=== PATIENT | female | born 1945 | race Caucasian/White ===

== ENCOUNTER → 2016-04-23 | Outpatient (CLI) | payer BC ==
[~2016-04-23] MED LIST: ASCA500 PO; ASPI81TA28 PO; AZEL0.055 OP; AZEL30SP NAE; GLUC1CAP35 PO; MULT-506 PO; OXYC-57 PO; WARF2TAB PO
== END | disposition home or self-care (01) ==
LOC: C.RDSM 13:30
PROVIDERS: ATTEND Physical Medicine & Rehabilitation Sports Medicine
DX: M25.561 Pain in right knee (principal)

== ENCOUNTER → 2016-09-11 | Outpatient (CLI) | payer BC ==
--- NOTE | 2016-09-11 16:16 | MAMMOGRAPHY REPORT ---
BILATERAL DIGITAL SCREENING MAMMOGRAM WITH CAD: 09/11/2016 CLINICAL HISTORY: Routine screening. TECHNIQUE: Bilateral CC, MLO and repeat left MLO views were obtained. Current study was also evaluat ed with a Computer Aided Detection (CAD) system. COMPARISON: Comparison is made to exams dated: 09/08/2015 mammogram, 09/02/2014 mammogram, 08/27/2013 ma mmogram, 08/26/2012 mammogram, 08/21/2011 mammogram, and 08/17/2010 mammogram - [facility] nter. BREAST COMPOSITION: There are scattered areas of fibroglandular density in both breasts. FINDINGS: There are stable scattered and grouped benign-appearing round microcalcifications. No susp icious mass, architectural distortion or cluster of suspicious microcalcifications is seen. IMPRESSION: ACR BI-RADS CATEGORY 1: NEGATIVE There is no mammographic evidence of malignancy. A 1 year screening mammogram is recommended. The pa tient will receive written notification of the results. Approximately 10% of breast cancers are not detected with mammography. A negative mammographic report should not delay biopsy if a clinically suggestive mass is present. Suad Strong M.D. ay/:09/11/2016 14:14:44 Book Cutter: Doe FAIRCHILD(Willam)(Chirag), [facility] letter sent: Normal 1/2 BI-RADS Code: ACR BI-RADS Category 1: Negative
== END | disposition home or self-care (01) ==
LOC: C.MAMM 09:03
PROVIDERS: ATTEND Family Medicine
DX: Z12.31 Encounter for screening mammogram for malignant neoplasm of breast (principal)

== ENCOUNTER → 2016-12-07 | Outpatient (CLI) | payer BC, OTHER ==
--- NOTE | 2016-12-07 11:12 | DIAGNOSTIC IMAGING REPORT ---
BILATERAL KNEE RADIOGRAPHS CLINICAL HISTORY: Bilateral knee pain. COMPARISON: Knee radiographs April 23, 2016. FINDINGS: Right knee: There is moderate to marked lateral compartment joint space narrowing with osteophytosis. There is also joint space narrowing of the patellofemoral compartment. There is tricompartmental osteophytosis of the right knee. A small to moderate right knee joint effusion is present. There is no fracture. Left knee: Alignment of the left knee is anatomic. There is no fracture or suspicious lesion. There is a suspected small left knee joint effusion. There is mild lateral compartment joint space narrowing with moderate osteophytosis. There is mild patellofemoral compartment joint space narrowing. IMPRESSION: Right knee: 1. Tricompartmental osteoarthrosis of the right knee, most pronounced within the lateral compartment where there is severe joint space narrowing. 2. Small to moderate right knee joint effusion. Left knee: 1. Small left knee joint effusion. 2. Moderate lateral compartment osteoarthritis. Electronically signed by: Sly Miller M.D. 12/07/2016 11:10 AM Dictated Date/Time: 12/07/2016 11:08 AM
== END | disposition home or self-care (01) ==
LOC: C.RDSM 10:00
PROVIDERS: ATTEND Physician Assistant
DX: M17.0 Bilateral primary osteoarthritis of knee (principal)

== ENCOUNTER 2017-01-02 04:44 | Inpatient (IN) | payer BC, OTHER ==
[2016-12-07 11:43] VITALS: BMI 22.0
--- NOTE | 2016-12-07 12:15 | PAT Medication Instructions ---
Service Date Dec 07, 2016. Current Home Medication List Ascorbic Acid (Vitamin C), 1 TAB PO QAM Aspirin (Aspirin Ec), 81 MG PO Q2D Azelastine Hcl (Ophth) (Azelastine Hcl), 1 DROPS OP BID Ctbshjdatlj-Xidhogygsdq-Zjw C- (Glucosamine Chondroitin), 1 CAP PO QAM Multivitamin (Multivitamin), 1 TAB PO QAM Medication Instructions For Your Scheduled Surgery - Continue as directed: Aspirin (Aspirin Ec), 81 MG PO Q2D - Hold the following medications 2 weeks prior to surgery: Fgxmmywebxv-Wyyymquaacz-Yuc C- (Glucosamine Chondroitin), 1 CAP PO QAM - Hold the following medications the morning of surgery: Ascorbic Acid (Vitamin C), 1 TAB PO QAM Multivitamin (Multivitamin), 1 TAB PO QAM - Take the following medications the morning: Azelastine Hcl (Ophth) (Azelastine Hcl), Nasal [place] BID - Take the following medications as scheduled the night before surgery: Azelastine Hcl (Ophth) (Azelastine Hcl), Nasal [place] BID If you have any questions please call us at [phone] or [phone] or [phone]
[2016-12-07 12:54] LABS: BASO % 0.6 %; BASO ABS # 0.03 K/uL (0-0.2); COMPLETE YES; EOS % 0.4 %; HEMATOCRIT 41.5 % (37-47); IG% 0.2 %; LYMPH % 20.6 %; MEAN CELL VOLUME 90.6 fL (80-100); MEAN PLATELET VOLUME 9.4 fL (7.4-10.4); MONO % 15.1 %; NEUT % 63.1 %; PLATELET COUNT 295 K/uL (130-400); RED BLOOD COUNT 4.58 M/uL (4.2-5.4); WHITE BLOOD COUNT 4.85 K/uL (4.8-10.8)
--- NOTE | 2016-12-07 12:55 | DIAGNOSTIC IMAGING REPORT ---
CHEST 2 VIEWS ROUTINE CLINICAL HISTORY: 71 years-old Female presenting with preoperative chest x-ray. TECHNIQUE: PA and lateral views of the chest were obtained. COMPARISON: None. FINDINGS: Cardiomediastinal silhouette normal. Tortuosity of the descending thoracic aorta. Lungs and pleural spaces clear. Degenerative changes of the spine. Upper abdomen normal. IMPRESSION: 1. No acute cardiopulmonary disease. Electronically signed by: Jackson Cabral M.D. 12/07/2016 12:53 PM Dictated Date/Time: 12/07/2016 12:53 PM
[2016-12-07 13:06] LABS: INR 1.1 (0.9-1.1); PROTHROMBIN TIME (PATIENT) 11.5 SECONDS (9.0-12.0)
[2016-12-07 13:07] LABS: URINE APPEARANCE CLEAR (CLEAR); URINE BILIRUBIN NEG (NEG); URINE COLOR YELLOW; URINE EPITHELIAL CELL AUTO 0-5 /lpf (0-5); URINE NITRITE NEG (NEG); URINE SPECIFIC GRAVITY 1.018 (1.000-1.030); UROBILINOGEN NEG (NEG); ZZUR CULT IF INDIC CLEAN CATCH NO
[2016-12-07 13:17] LABS: MANUAL MICROSCOPIC REQUIRED? NO; REVIEW REQ? NO
[2016-12-07 13:23] LABS: CREATININE 0.67 mg/dl (0.60-1.20)
[2016-12-07 13:24] LABS: BUN/CREATININE RATIO 16.3 (10-20); CALCIUM 9.7 mg/dl (8.5-10.1); POTASSIUM 4.7 mmol/L (3.5-5.1)
--- NOTE | 2016-12-19 16:52 | HISTORY & PHYSICAL EXAMINATION ---
DATE OF ADMISSION: 01/02/2017 CHIEF COMPLAINT: Right knee pain. HISTORY OF PRESENT ILLNESS: This 71-year-old white female presents with complaints of right knee pain that she has had for several years. Pain has become worse with time. It is now affecting her ADLs. Pain is worse with weightbearing and ambulation. She denies any catching or locking. She does note crepitus in her knee. Occasional night pain. No effusions. No numbness or tingling. She has tried oral anti-inflammatories, oral pain medications, activity modification, viscosupplementation without lasting relief. Preoperative x-rays have been obtained. She elects to proceed with total knee arthroplasty in hopes of alleviating her pain. PAST MEDICAL HISTORY: Significant for osteoarthritis, history of hyperthyroidism, though it has returned to normal. Also, history of a monoclonal gammopathy of unknown significance (MGUS). PREVIOUS SURGERIES: Left hip arthroplasty 2000, right hip arthroplasty 2002, dental implants, and wisdom tooth extraction. SOCIAL HISTORY: The patient is retired. Single. No tobacco use, no ETOH use. FAMILY HISTORY: Significant for arthritis, hypertension, and stroke in her mother. ALLERGIES: KNOWN ALLERGY TO SHELLFISH AND SHRIMP. CURRENT MEDICATIONS: Aspirin 81 mg every other day, Astelin nasal spray 137 mcg 1 spray in each nostril b.i.d., Citracal p.o. daily, multivitamin daily, vitamin C daily. REVIEW OF SYSTEMS: Significant for above stated conditions, otherwise unremarkable. PHYSICAL EXAMINATION: GENERAL: Well-developed, well-nourished elderly white female in no acute distress. Sitting on a bed. Alert and oriented. SKIN: Warm and dry with good turgor. No rashes or lesions. No ecchymosis or erythema. No intraarticular effusion. HEAD, EYES, EARS, NOSE, AND THROAT: Normocephalic, atraumatic. Eyes PERRLA, EOMI. Nares patent bilaterally without turbinate enlargement. Oropharynx without erythema or exudate. No lesions noted. Uvula midline. Oral mucosa moist. Good dentition. Dental implant is noted. HEART: RRR. No MGR. LUNGS: Clear to auscultation bilaterally. No crackles, rhonchi or wheezing. Good air movement. ABDOMEN: Bowel sounds present x4, soft, nontender. No organomegaly. No masses. MUSCULOSKELETAL: Right knee has no intraarticular effusion. Significant valgus deformity. Stable collateral ligaments. No defect in the patellar tendon or quadriceps tendon. Marked crepitation with motion. She has full terminal extension. Flexion to greater than 110 degrees. Strength is 5/5 with fair quad tone. There is medial and lateral joint line discomfort with palpation. Mild peripatellar discomfort today. Ambulatory with an antalgic gait. NEUROLOGIC: Gross sensation is intact across the lower extremities via soft touch. Cranial nerves II-XII are intact. Peripheral pulses are 2+. DATA: Radiographic imaging obtained today was positive for significant degenerative change within the knee. She has valgus alignment. Periarticular osteophytes, subchondral sclerosis, and joint space narrowing are all present. Significant lateral compartment disease is noted. IMPRESSION: Right knee end-stage degenerative joint disease. PLAN: Informed written consent to proceed with right total knee arthroplasty will be obtained the day of surgery. Postoperative prescriptions for Percocet and Coumadin have been provided so that she may pick them him up ahead of time. Anticipate discharge to home with home health services. She will have someone stay with her for the first several days. She will also have friends check on her. Preoperative lab work, EKG, and chest x-ray have been ordered. Medical clearance has been requested from Dr. Anderson. She already has a walker and crutches.
[~2017-01-02] VITALS: Ht 160 cm; Wt 58.0 kg
[2017-01-02] VITALS (8 sets, daily range): BP systolic 121–142; BP diastolic 74–87; PULSE 58–71; TEMP 36.5–36.9; O2SAT 92–98; Ht 160 cm; Wt 58.0 kg
[~2017-01-02 04:44] MED LIST changes: -AZEL0.055 OP; -OXYC-57 PO; -WARF2TAB PO
[2017-01-02] MEDS ORDERED: TRANEXAMIC ACID INJ 1,000 MG in SODIUM CHLORIDE 0.9% 100ML 100 ML IV SCH ×2 (06:00→14:30)
[2017-01-02] MEDS ORDERED: LACTATED RINGER'S 1000ML 500 ML IV ONE (06:00)
[2017-01-02] MEDS ORDERED: LACTATED RINGER'S 1000ML 1,000 ML IV SCH (06:00)
[2017-01-02] MEDS ORDERED: ROPIVACAINE 5MG/ML 30 ML 150 MG, BUPIVACAINE/EPINEPHR 0.5% MPF 30 ML, KETOROLAC TROMETH... INFIL SCH ×7 (06:00)
[2017-01-02] MEDS ORDERED: CEFAZOLIN 2000 MG/60 ML D5W 60 ML IV SCH (06:00)
[2017-01-02] MEDS ORDERED: LACTATED RINGER'S 1000ML IV SCH (06:00)
--- NOTE | 2017-01-02 06:23 | History & Physical Bridge Note ---
H&P Re-Evaluation Bridge Note: I have examined the patient, reviewed the History & Physical and in the interval since the performance of the History & Physical I have noted the following changes of clinical significance: consent obtained.No changes noted
[2017-01-02] MEDS ORDERED: MIDAZOLAM HCL 1 MG/ML 2ML VIAL ONE (06:27)
[2017-01-02] MEDS ORDERED: FENTANYL CITRATE INJ 50 MCG/1 ML 2 ML VIAL ONE (06:28)
[2017-01-02] MEDS ORDERED: ROPIVACAINE 0.5% 5 MG/ML 30 ML VIAL ONE (06:31)
[2017-01-02] MEDS ORDERED: BUPIVACAINE 0.5 % 5 MG/1 ML PF 10ML VIAL ONE (06:31)
[2017-01-02] MEDS ORDERED: ORTHO JOINT ANESTHETIC ONE (06:31)
[2017-01-02] MEDS ORDERED: BACITRACIN 50000 UNIT VIAL ONE (06:56)
[2017-01-02] MEDS ORDERED: LIDOCAINE HCL 2% 2 ML VIAL (20MG/ML) ONE (07:21)
[2017-01-02] MEDS ORDERED: PROPOFOL IV EMULSION 10 MG/ML 20 ML VIAL IV ONE (07:21)
--- NOTE | 2017-01-02 08:26 | [facility] Post Operative Brief Note ---
Immediate Operative Summary Operative Date Jan 02, 2017. Pre-Operative Diagnosis Right Knee End-Stage Degenerative Joint Disease Post-Operative Diagnosis Right Knee End-Stage Degenerative Joint Disease Procedure(s) Performed Right Total Knee Arthroplasty Surgeon Dr. Gray Cisco Administrator Surgeon(s) Dr. Stack/NEEMA Penny Estimated Blood Loss 50cc Findings severe lateral disease Fluids (cc crystalloids) 1300cc Specimens A. Right Knee Bone and Tissue B. Reamings of Canal Right Knee (History of Monoclonal Gammopathy--written on specimen slip) Drains none Anesthesia spinal Complication(s) None Disposition Recovery Room / PACU
[2017-01-02] MEDS ORDERED: ONDANSETRON INJ 2 MG/ML 2 ML VIAL IV PRN ×2 (08:45→09:15)
[2017-01-02] MEDS ORDERED: ALUMINUM/MAGNESIUM/SIMETH (MAALOX MAX) 30 ML UDC PO PRN (08:45)
[2017-01-02] MEDS ORDERED: METOCLOPRAMIDE HCL INJ 5 MG/ML 2 ML VIAL IV PRN (08:45)
[2017-01-02] MEDS ORDERED: ACETAMINOPHEN 325 MG TAB PO PRN (08:45)
[2017-01-02] MEDS ORDERED: DiphenhydrAMINE HCL 50 MG/ML VIAL IV PRN (08:45)
[2017-01-02] MEDS ORDERED: MoRPHine SULFATE 2 MG/ML CARP IV PRN (08:45)
[2017-01-02] MEDS ORDERED: ACETAMINOPHEN IV 100 ML IV PRN (08:45)
[2017-01-02] MEDS ORDERED: BISACODYL 10 MG SUPP PR PRN (08:45)
[2017-01-02] MEDS ORDERED: MAGNESIUM HYDROXIDE SUSP 30 ML UDC PO PRN (08:45)
--- NOTE | 2017-01-02 08:52 | OPERATIVE REPORT ---
DATE OF OPERATION: 01/02/2017 PREOPERATIVE DIAGNOSIS: Osteoarthritis, right knee with valgus deformity. POSTOPERATIVE DIAGNOSIS: Same. OPERATION PERFORMED: Cemented right total knee replacement. SURGEON: Dr. Gray. SHEET METAL OPERATOR: Seda. SECOND SHEET METAL OPERATOR: Dimitri Case PA-C. PERIOPERATIVE SITUATION: Medically cleared female with intractable knee pain has valgus deformity, has failed conservative management for years and wants to proceed with surgical treatment. She has a hip replacement done on the left. SUMMARY OF IMPLANTS: Size 3 posterior cruciate substituting femur, size 3 rotating tibial platform tray, oval domed 3 pegged patella size 38, tibial insert size 3, posterior cruciate substituting 10 mm thick, 2 bags of Palacos G cement. ESTIMATED BLOOD LOSS: 50 mL. CRYSTALLOID: 1300 mL. PROCEDURE: The patient appropriately identified, site verified, consent verified, 2 grams of Ancef confirmed as being given. The right lower extremity was prepped and draped in usual routine fashion. Midline exposure was utilized. Parapatellar arthrotomy performed. Synovectomy completed, osteophytes resected. Distal femur entered. Cruciates resected. Distal femur resected 12 mm. Proximal tibia resected 4 mm. The extension gap was then checked. It was slightly tight, additional cut made and was perfect. Femur was sized to a 3. Care was taken to make sure it was not internally rotated secondary to valgus deformity. The transepicondylar axis looked good. The femur was then resected to a size 3 and the flexion gap was checked. It was good. The box cut was then made and a size 3 trial fit well. The tibia was then broached and reamed to a size 3 with excellent fit. The size 10 spacer fit well. Patella was sized to a 38, resection made leaving 15 mm, seating hole was made and the trial fit well and tracked well. All trial implants were then removed. The wound was copiously irrigated with Pulsavac with bacitracin as she was allergic to Betadine. The permanents were then cemented into position. After 12 minutes, the tourniquet deflated, after 16 minutes the knee flexed. Minor cement removal occurred. The wound was irrigated. The trial spacer removed, the wound irrigated and then the permanent spacer seated, knee reduced and closed with #1 Ethibond, #1 Vicryl, 2-0 Vicryl and stainless steel clips. Appropriate dressing applied. The patient transferred to the recovery room in satisfactory condition having tolerated the procedure well. I attest to the content of the Intraoperative Record and any orders documented therein. Any exception s are noted below.
[2017-01-02] MEDS: PANTOprazole SOD 40 MG TAB PO SCH (09:00)
[2017-01-02] MEDS: DOCUSATE SODIUM 100 MG CAP PO SCH ×2 (09:00→21:13)
[2017-01-02] MEDS: MULTIVITAMIN TAB PO SCH (09:00)
--- NOTE | 2017-01-02 09:05 | Anesthesiology Progress Note ---
Anesthesia Post Op Note Date & Time Jan 02, 2017 at 09:05 Vital Signs Pain Intensity: 0 Vital Signs Past 12 Hours Date Time Temp Pulse Resp B/P (MAP) Pulse Ox O2 Delivery O2 Flow Rate FiO2 01/02/17 09:01 123/78 01/02/17 08:58 65 18 100 01/02/17 08:58 64 18 01/02/17 08:56 126/78 01/02/17 08:53 55 14 01/02/17 08:53 55 14 100 01/02/17 08:51 119/72 01/02/17 08:48 54 12 01/02/17 08:48 56 12 100 01/02/17 08:47 59 16 01/02/17 08:47 58 16 100 01/02/17 08:46 116/71 01/02/17 08:42 63 14 100 01/02/17 08:42 59 14 01/02/17 08:41 116/73 01/02/17 08:38 112/70 01/02/17 08:37 63 16 01/02/17 08:37 36.5 60 13 112/70 100 Oxymask 10 01/02/17 08:37 63 16 100 01/02/17 05:35 36.6 71 18 133/87 95 Room Air Notes Mental Status: alert / awake / arousable, participated in evaluation Pt Amnestic to Procedure: Yes Nausea / Vomiting: adequately controlled Pain: adequately controlled Airway Patency, RR, SpO2: stable & adequate BP & HR: stable & adequate Hydration State: stable & adequate Anesthetic Complications: no major complications apparent
[2017-01-02] MEDS ORDERED: EpHEDrine SULFATE INJ 50 MG/ML AMP IV PRN (09:15)
[2017-01-02] MEDS ORDERED: HYDROmorphone INJ 2 MG/ML SYR/VIAL IV PRN (09:15)
[2017-01-02] MEDS ORDERED: ATROPINE SULFATE 0.1 MG/ML 5ML SYR IV PRN (09:15)
[2017-01-02] MEDS ORDERED: PHENYLEPHRINE 100MCG/ML 5ML SYR IV PRN (09:15)
--- NOTE | 2017-01-02 09:21 | DIAGNOSTIC IMAGING REPORT ---
R KNEE 1 OR 2 VIEWS ROUTINE HISTORY: 71 years-old Female AP/LATERAL IN PACU RIGHT KNEE osteoarthritis of the right knee. Status post right knee arthroplasty. COMPARISON: Right knee radiographs 12/07/2016 TECHNIQUE: AP and lateral views of the right knee FINDINGS: Patient is status post total knee arthroplasty with patellar resurfacing. No evidence of malalignment or postprocedural complication on these images. Expected postsurgical swelling and deep tissue air is noted about the knee with midline anterior skin favian. Surgical drain is in place. IMPRESSION: Status post right knee total joint arthroplasty and patellar resurfacing without complication identified. The above report was generated using voice recognition software. It may contain grammatical, syntax or spelling errors. Electronically signed by: Yan Valladares M.D. 01/02/2017 9:20 AM Dictated Date/Time: 01/02/2017 9:19 AM
[2017-01-02] MEDS ORDERED: D5W AND 1/2NSS + 20MEQ KCL 1,000 ML IV SCH (11:15)
[2017-01-02] MEDS: KETOROLAC TROMETHAMINE 15 MG/ML VIAL IV. SCH ×3 (12:10→23:46)
[2017-01-02] MEDS: FERROUS GLUCONATE 324 MG TAB PO SCH ×2 (12:30→18:13)
[2017-01-02] MEDS ORDERED: MoRPHine SULFATE 4 MG/ML 1 ML CARP\\VIAL IV PRN (12:30)
--- NOTE | 2017-01-02 14:34 | PROGRESS NOTE ---
DATE: 01/02/2017 Postop check, status post right total knee replacement. The patient is still having some weakness and numbness from the spine, but it is wearing off. She can wiggle her toes or ankle. She denies chest pain, shortness of breath, fever or chills, nausea or vomiting. Vital signs are stable. She is afebrile. Neurovascular check otherwise is normal. X-rays postop look excellent. ASSESSMENT: Doing well. Eating well. At this point, we will Hep-Lock IV. We will wait for her spinal be worn up before we get her out of bed. Could be weightbearing to tolerate. A knee immobilizer for block effects. MTDD
[2017-01-02] MEDS: CEFAZOLIN IV 2,000 MG in DEXTROSE 5% 50ML 50 ML IV SCH ×2 (14:36→21:13)
[2017-01-02] MEDS ORDERED: WARFARIN SOD 5 MG TAB PO SCH (16:00)
[2017-01-02] MEDS ORDERED: OXYC-57 PO (17:02)
[2017-01-02] MEDS ORDERED: WARF2TAB PO (17:02)
[2017-01-02] MEDS: AZELASTINE SCH (21:00)
[2017-01-02] MEDS: FLUTICASONE SCH (21:00)
[2017-01-03 03:35] VITALS: BP 118/75; PULSE 66; TEMP 36.6; O2SAT 96
[2017-01-03] MEDS: KETOROLAC TROMETHAMINE 15 MG/ML VIAL IV. SCH (06:08)
[2017-01-03 06:51] VITALS: BP 120/75; PULSE 67; TEMP 36.8; O2SAT 95
--- NOTE | 2017-01-03 07:08 | PROGRESS NOTE ---
DATE: 01/03/2017 Postop check. Postop day #1 status post right total knee replacement. The patient is doing well. She complains of some occasional cramping which she gets all the time. She denies any numbness, tingling, back pain. She denies shortness of breath, fever, chills, nausea, vomiting or headache. These are in the adductor muscles of her thigh. This has been chronic for her. Exam today reveals no abdominal pain, no chest pain. No leg pain. No calf pain. Neurovascular check femoral sciatic nerve is normal. Wound dressing clean, dry and intact. A.m. labs are pending. ASSESSMENT: Doing well. Will discharge after PT, OT and social service assessments today. Discharge on 4 mg Coumadin today if INR is less than 1.4; if INR is greater than 1.4 discharge on 2 mg a day. Check first INR on Saturday. She wants to do outpatient PT.
--- NOTE | 2017-01-03 07:18 | DISCHARGE SUMMARY ---
CHIEF COMPLAINT: Right knee pain. HISTORY OF PRESENT ILLNESS: 71-year-old female admitted for elective right total knee replacement. Hospital course has been uneventful. She has occasional cramping which has been going on for a long time; it is not related to anything here. She can be discharged; this is not an issue. She denies chest pain, shortness of breath, fever, chills, nausea, vomiting, headache. PAST MEDICAL HISTORY: Remarkable for osteoarthritis, hypothyroidism, history of monoclonal gammopathy of unknown significance (MGUS). PAST SURGICAL HISTORY: Left hip arthroplasty 2000, right hip arthroplasty 2002, dental implants and wisdom tooth extraction. SOCIAL HISTORY: Reveals that she is retired. She is single. No tobacco or alcohol use. FAMILY HISTORY: Remarkable for arthritis, hypertension, stroke in her mother. ALLERGIES: SHELLFISH AND SHRIMP. PREADMISSION MEDICATIONS: Aspirin 81 mg every other day, Astelin nasal spray b.i.d., Citracal daily, multivitamin and vitamin C daily. She will continue those and add Coumadin to keep INR 1.8-2.2. She will be discharged on 4 mg if INR is less than 1.4 and 2 mg if INR is greater than 1.4. REVIEW OF SYSTEMS: Noncontributory. ASSESSMENT: Status post right total knee replacement. She is doing well. Will discharge today after assessment by social organization professor, PT and OT. See Coumadin recommendations above. Followup in 2 weeks.
[2017-01-03] MEDS ORDERED: DEXAMETHASONE INJ 10 MG in SYRINGE 0 ML IV ONE (07:30)
[2017-01-03 08:22] LABS: HEMATOCRIT 38.1 % (37-47); MEAN CELL VOLUME 89.2 fL (80-100); MEAN CORPUSCULAR HGB CONC 32.5 g/dl (32-36); MEAN PLATELET VOLUME 9.7 fL (7.4-10.4); PLATELET COUNT 230 K/uL (130-400); RED BLOOD COUNT 4.27 M/uL (4.2-5.4)
[2017-01-03 08:28] LABS: INR 1.2 (0.9-1.1); PROTHROMBIN TIME (PATIENT) 13.2 SECONDS (9.0-12.0)
[2017-01-03 08:57] LABS: BUN/CREATININE RATIO 15.5 (10-20); CALCIUM 9.1 mg/dl (8.5-10.1); CREATININE 0.77 mg/dl (0.60-1.20); POTASSIUM 4.1 mmol/L (3.5-5.1)
[2017-01-03] MEDS: FLUTICASONE SCH (09:00)
[2017-01-03] MEDS ORDERED: ASPIRIN 81 MG ECTAB PO SCH (09:00)
[2017-01-03] MEDS: AZELASTINE SCH (09:00)
[2017-01-03] MEDS: DOCUSATE SODIUM 100 MG CAP PO SCH (09:00)
[2017-01-03] MEDS: PANTOprazole SOD 40 MG TAB PO SCH (09:10)
[2017-01-03] MEDS: FERROUS GLUCONATE 324 MG TAB PO SCH ×2 (09:11→12:37)
[2017-01-03] MEDS: MULTIVITAMIN TAB PO SCH (09:11)
[2017-01-03] MEDS: OXYCODONE HCL IR 5 MG TAB (IMMEDIATE RELEASE) PO PRN ×2 (09:12→13:52)
--- NOTE | 2017-01-03 09:14 | Discharge Instructions ---
Discharge Instructions Date of Service Jan 02, 2017. Admission Reason for Admission: Right Knee Degenerative Joint Disease Discharge Discharge Diagnosis / Problem: Right knee s/p total knee replacement Discharge Goals Goal(s): Improve function, Increase independence Activity Recommendations Activity Limitations: as noted below Lifting Limitations: gradually increase as tolerated Exercise/Sports Limitations: until after follow-up appointment Shower/Bathe: keep incision dry Driving or Machine Use: No driving until cleared by Dr. Gray Weightbearing Status: Right weightbearing (as tolerated) . Instructions / Follow-Up Instructions / Follow-Up New Medicine: * You will likely be taking one or more of these medications: 1. Percocet - Take, as directed, when you need it, every four to six hours to control your pain. 2. Coumadin - Thins your blood to lessen the chance of forming a blood clot. The dose of this is different for each person and is based on your blood tests that are done twice a week. * The most common side effects of pain medicine and iron are nausea and constipation. If nausea or constipation is too much of a problem or if you have any questions about your new medicines or doses, call [facility] at . We will try to help you manage these issues. VERY IMPORTANT TO READ AND REVIEW" Blood Clots and Blood Thinning Medicine: * You are given Coumadin during the immediate post-operative period to lessen the risk of blood clots forming in your legs and/or lungs. Coumadin is usually given for six weeks after surgery. * The prescription is for 2 mg tablets. At discharge, you should understand your dose and take it all at the same time every day, preferably after dinner. * You need to get your blood checked 1 - 2 times per week for six weeks or as directed. * If your dose needs to change, we will call you. Do not take your medication on the day of the blood test until we call you. Pain: * The immediate post-operative period after knee replacement surgery is often quite painful. * You are given a prescription for pain medicine. You should take it, as directed, when you need it, especially before physical therapy and before going to bed. Pain that interferes with sleep is very common and can last several months. * You will likely need pain medicine for the first four to six weeks. It will not stop all of the pain. The pain will lessen and as you feel better, you may change to milder pain medicine such as Tylenol. * The most common side effects of pain medicine are nausea and constipation, so don't take more than you need. Physical Therapy: * You will have physical therapy two or three times each week for four to six weeks after your surgery in order to regain your knee range of motion and to retrain your knee to work properly. * It is just as important to make sure you are getting your knee perfectly straight as it is to regain your knee bend. * Taking a pain pill an hour before therapy can help you have a more productive and comfortable therapy session if needed. Home Exercise: * You were shown a series of exercises (heel props, heel slides, etc.) in the hospital. Do these exercises three to four times each day including the exercises you were shown in physical therapy. Walking: * Get up and walk several times each day. For the first four weeks, try not to stand or walk for more than one hour at a time. If you do stand or walk for more than one hour, you will not hurt anything, but your knee and leg will likely swell. * As you feel comfortable, you may change from the walker or crutches to a cane and then to independent walking. SELF CARE INSTRUCTIONS AFTER TOTAL KNEE REPLACEMENT A. You may need to continue a physical therapy program after discharge from the hospital. There are several options available to you. Your doctor will assist you in selecting the best one for you. 1. An out-patient facility 2 to 3 times a week for therapy or home therapy. 2. Continue working on all exercises taught to you in the hospital. Your goals should be to increase bending of your knee to 90 degrees and beyond and to fully straighten your knee. B. You may progress at your own pace from walking with a walker or crutches to a cane; then to no assistive devices. C. Make walking a part of your daily routine. Be up as much as comfortable with rest periods throughout the day. Rest with leg elevation is very important. Use the ice wrap frequently for the first 3-4 weeks. D. There are no restrictions on activities. You may ride in a car, shop, participate in senior manufacturing engineer and all social activities. E. Wear the long elastic stockings (JIMY hose) 20 hours a day for six weeks after surgery. They can be removed several times a day for laundering and for a shower. F. Do not place a pillow behind your knee when resting. A pillow at your ankle is okay. VERY IMPORTANT TO READ AND REVIEW A. Take Coumadin, Aspirin or Lovenox (blood thinning medications) as directed by your doctor. If on Coumadin, have a pro-time (blood test) drawn according to your doctor's instructions. This will tell the doctor how well the Coumadin is thinning your blood. 1. YOU WILL BE GIVEN AN ORDER AT DISCHARGE FOR PT/INR (BLOOD WORK). PLEASE HAVE THIS DONE INSTRUCTED. PLEASE CALL OUR OFFICE AFTER YOUR BLOODWORK IS COMPLETE SO WE CAN TRACK YOUR RESULTS. IF YOU ARE GOING TO OUTPATIENT PHYSICAL THERAPY, YOU WILL NEED TO GO TO OUTPATIENT TESTING TO HAVE IT DRAWN. B. There are a few signs you need to watch for after you are home. Call [facility] if you notice any of the followin. Increased severe knee pain. Some pain is expected especially when you exercise. 2. Increased swelling in your leg or knee; pain or swelling of the calf muscle in either lower leg. 3. Any fluid drainage from the incision. 4. Shortness of breath or chest pain. C. Please call [facility] at if you have any concerns or questions about your operation or recovery. The doctor or his nurse will return your call promptly. D. You must take antibiotics before dental work, bladder, bowel or other surgery. Call the office to obtain a prescription at least 2 days prior to your appointment. * CALL IF INCREASED PAIN, REDNESS, DRAINAGE OR FEVER GREATER THAT 101. * Sutures should be removed 12-14 days after surgery unless you are on chronic steriods, then it will be 14-18 days after surgery. Call your doctor if: * Temperature above 101 degrees F. * Pain not relieved by pain medicine ordered. * Increased drainage or redness from incision. * Notify your doctor with any questions or concerns. Current Hospital Diet Patient's current hospital diet: Regular Diet Discharge Diet Recommended Diet: Regular Diet Procedures Procedures Performed: Right Total Knee Arthroplasty Pending Studies Studies pending at discharge: no Medical Emergencies . Who to Call and When: Medical Emergencies: If at any time you feel your situation is an emergency, please call 911 immediately. . Non-Emergent Contact Non-Emergency issues call your: Primary Care Provider, Surgeon Call Non-Emergent contact if: temperature is above 101, wound has increased drainage, wound has increased redness, wound has increased pain, you have any medication questions . "Provider Documentation" section prepared by Dimitri Case PA-C. . VTE Core Measure Inpt VTE Proph given/why not?: Warfarin (Coumadin), T.E.D. Stockings, SCD's [place] Drug Monitoring Program Search Results: no issues identified
--- NOTE | 2017-01-03 09:19 | Orthopedic Progress Note ---
Orthopedic Progress Note Date of Service Jan 03, 2017. Subjective Post OP Day: 1 Reports: feeling well, pain controlled w PO medications, Denies: complaints, chest pain, SOB, nausea / vomiting, light headedness, calf pain Objective calves soft nontender, N/V intact, capillary refill less than 2 sec., dressing C /D/I, incision C/D/I, A&O x3, toes mobile, CMS intact ambulating well in room. Scant drainage on bandages, no active drainage. Date Time Temp Pulse Resp B/P (MAP) Pulse Ox O2 Delivery O2 Flow Rate FiO2 01/03/17 08:00 Room Air 01/03/17 06:51 36.8 67 19 120/75 (90) 95 Room Air 01/03/17 03:35 36.6 66 16 118/75 (89) 96 Room Air 01/02/17 23:15 36.7 64 19 122/74 (90) 92 Room Air 01/02/17 19:45 Room Air 01/02/17 15:53 36.8 59 16 121/74 (90) 97 Nasal Cannula 2.0 01/02/17 13:20 65 16 124/78 (93) 96 Nasal Cannula 01/02/17 12:18 36.5 58 16 142/82 (102) 96 Nasal Cannula 2.0 01/02/17 11:19 66 16 135/83 (100) 98 Nasal Cannula 2.0 01/02/17 10:54 62 19 129/79 (96) 97 Nasal Cannula 2.0 01/02/17 10:20 97 Nasal Cannula 2.0 01/02/17 10:20 36.9 59 16 131/78 (95) 94 Nasal Cannula 2.0 01/02/17 10:20 Nasal Cannula 01/02/17 10:06 128/74 01/02/17 10:04 58 14 100 01/02/17 10:04 58 14 01/02/17 10:01 127/78 01/02/17 10:00 36.9 01/02/17 09:59 61 16 100 01/02/17 09:59 62 16 01/02/17 09:58 60 16 01/02/17 09:58 61 16 99 01/02/17 09:56 125/75 01/02/17 09:53 59 16 01/02/17 09:53 60 16 100 01/02/17 09:51 122/76 01/02/17 09:48 61 12 100 01/02/17 09:48 61 12 01/02/17 09:46 124/74 01/02/17 09:44 122/75 01/02/17 09:43 59 15 100 01/02/17 09:43 59 15 01/02/17 09:41 122/75 01/02/17 09:38 60 16 100 01/02/17 09:38 60 16 01/02/17 09:36 119/76 01/02/17 09:33 62 13 01/02/17 09:33 61 13 100 01/02/17 09:32 65 18 01/02/17 09:32 63 18 100 01/02/17 09:31 126/81 01/02/17 09:27 55 16 100 01/02/17 09:27 55 16 01/02/17 09:26 122/76 01/02/17 09:22 57 12 100 01/02/17 09:22 56 12 01/02/17 09:21 135/86 01/02/17 09:18 60 14 100 01/02/17 09:18 58 14 01/02/17 09:16 125/76 Laboratory Results 24 Hours: Test 01/03/17 08:04 Hematocrit 38.1 % Hemoglobin 12.4 g/dL Prothromb Time International Ratio 1.2 Prothrombin Time 13.2 SECONDS Assessment & Plan Assessment: Right knee post op day 1 total knee arthroplasty Plan: PT/OT today anticipate D/C to home today with outpatient PT dressing changed this morning-wound looks very good follow up in the office in 2 weeks for staple removal. Discharge Planning Discharge Planning: home Pain Management: Percocet DVT Prophylaxis: TEDs, SCDs, Coumadin Therapy: Physical Therapy
--- NOTE | 2017-01-03 12:13 | Anesthesiology Progress Note ---
Anesthesia Post Op Note Date & Time Jan 03, 2017 at 12:12 Vital Signs Pain Intensity: 3.0 Vital Signs Past 12 Hours Date Time Temp Pulse Resp B/P (MAP) Pulse Ox O2 Delivery O2 Flow Rate FiO2 01/03/17 08:00 Room Air 01/03/17 06:51 36.8 67 19 120/75 (90) 95 Room Air 01/03/17 03:35 36.6 66 16 118/75 (89) 96 Room Air Notes Mental Status: alert / awake / arousable, participated in evaluation Pt Amnestic to Procedure: Yes Nausea / Vomiting: adequately controlled Pain: adequately controlled Airway Patency, RR, SpO2: stable & adequate BP & HR: stable & adequate Hydration State: stable & adequate Neuraxial Anesthesia: was administered, sensory block resolved Anesthetic Complications: no major complications apparent
[2017-01-03 12:26] VITALS: BP 120/75; PULSE 67; TEMP 36.8; O2SAT 95
[2017-01-03] MEDS ORDERED: WARFARIN SOD 5 MG TAB PO ONE (16:00)
--- NOTE | 2017-01-04 16:21 | [facility] Operative Report ---
Operative Report Operative Date Jan 04, 2017. Pre-Operative Diagnosis Right Knee End-Stage Degenerative Joint Disease Post-Operative Diagnosis Right Knee End-Stage Degenerative Joint Disease Procedure(s) Performed Right Total Knee Arthroplasty Surgeon Dr. Gray Teleradiologist Surgeon(s) Dr. Stack/NEEMA Penny Estimated Blood Loss 50cc Findings Right knee DJD Fluids 1300cc Specimens A. Right Knee Bone and Tissue B. Reamings of Canal Right Knee (History of Monoclonal Gammopathy--written on specimen slip) Drains none Anesthesia spinal Complication(s) None Disposition Recovery Room / PACU Indications This 71-year-old white female presented to the office with complaints of intractable right knee pain. She had tried conservative care measures with success. She elected to proceed with surgical intervention in hopes of alleviating her pain. Reoperative imaging was obtained. Description of Procedure Patient was administered a spinal anesthetic and then taken to the operating room where she was given sedation. She was prepped and draped in usual sterile fashion. Please see Dr. Gray's operative report for specifics of the procedure. I was present for the entire case from initial patient positioning through final wound closure. Assistance was provided in patient positioning, hemostasis, tissue traction, trial implant placement, final implant placement, and final wound closure. Patient was taken to the recovery room in satisfactory condition. I attest to the content of the Intraoperative Record and any orders documented therein. Any exceptions are noted below.
== END 2017-01-03 14:23 | disposition home or self-care (01) | DRG 470 ==
LOC: C.ACU 04:44 → C.3E 06:15 → ENRESERV 09:12
PROVIDERS: ADMIT Physical Medicine & Rehabilitation Sports Medicine; ATTEND Physical Medicine & Rehabilitation Sports Medicine
PROC: 0SRC0J9 Replacement of Right Knee Joint with Synthetic Substitute, Cemented, Open Approach (ICD-10-PCS; principal; 2017-01-02 07:00)
DX: M17.11 Unilateral primary osteoarthritis, right knee (principal); M21.061 Valgus deformity, not elsewhere classified, right knee; Z96.643 Presence of artificial hip joint, bilateral; Z79.899 Other long term (current) drug therapy; Z79.82 Long term (current) use of aspirin; Z82.61 Family history of arthritis; Z82.49 Family history of ischemic heart disease and other diseases of the circulatory system; Z82.3 Family history of stroke

== ENCOUNTER → 2017-02-25 | Outpatient (CLI) | payer BC, OTHER ==
[~2017-02-25] MED LIST changes: +OXYC-57 PO; +WARF2TAB PO
== END | disposition home or self-care (01) ==
LOC: C.RDSM 15:45
PROVIDERS: ATTEND Physical Medicine & Rehabilitation Sports Medicine
DX: M17.0 Bilateral primary osteoarthritis of knee (principal)

== ENCOUNTER → 2017-11-19 | Outpatient (CLI) | payer BC ==
[~2017-11-19] MED LIST changes: -OXYC-57 PO; -WARF2TAB PO
--- NOTE | 2017-11-19 10:44 | DIAGNOSTIC IMAGING REPORT ---
CHEST 2 VIEWS ROUTINE CLINICAL HISTORY: 72 years-old Female presenting with J90 Pleural effusionF/UP [id number]. TECHNIQUE: PA and lateral views of the chest were obtained. COMPARISON: 10/29/2017. FINDINGS: Atherosclerosis of the aortic arch. Cardiac silhouette normal in size. Persistent left basilar opacity and small to moderate left pleural effusion. Significant interval increase in right basilar opacity and moderate to large right pleural effusion. No pneumothorax. Degenerative changes of the thoracic spine. Upper abdomen normal. IMPRESSION: 1. Significant interval worsening of the now moderate to large right pleural effusion and extensive right basilar atelectasis. 2. Stable small to moderate left pleural effusion and left basilar atelectasis. 3. No pneumothorax. Electronically signed by: Jackson Cabral M.D. 11/19/2017 10:42 AM Dictated Date/Time: 11/19/2017 10:40 AM
== END | disposition home or self-care (01) ==
LOC: C.RAD 09:49
PROVIDERS: ATTEND Surgery
DX: J90 Pleural effusion, not elsewhere classified (principal); J98.11 Atelectasis